=== PATIENT | male | born 1955 | race Caucasian/White ===

== ENCOUNTER 2019-03-28 12:42 | Emergency (ER) | payer BC ==
[2019-03-28 12:56] VITALS: BP 149/93
--- NOTE | 2019-03-28 13:50 | ED Physician Documentation ---
PD HPI SKIN - Stated complaint Stated Complaint: RASH HANDS/TORSO - Chief complaint Chief Complaint: Wound - History obtained from History obtained from: Patient - History of Present Illness Timing - onset: How many weeks ago (1) Timing - duration: Weeks (1) Timing - details: Gradual onset Pain level max: 0 Pain level now: 0 Location: Other (L chest, B hands) Quality / character: Itchy Improved by: Other (hasn't taken anything) Worsened by (comment): COMMENT (nothing) Associated symptoms: No: Fever, Myalgias, Joint pain, Headache, Facial swelling, Dyspnea, Abd pain, N/V/D, Urinary sx, Other Contributing factors: Unknown. No: Exposed to medication, Exposed to food, Exposed to soap / lotion, Exposed to Poison ale/oak, Insect bite /sting, Recent illness Similar symptoms before: Has not had sx before Recently seen: Not recently seen - Additional information Additional information: Patient states that he started with a rash on his hands, they were small vesicles that have now erupted and he has peeling to the bilateral hands. He has also noticed a rash to the left chest wall over the same time. Describes both is itchy. Has not taken anything for this. No new soaps, detergents, medications. No recent travel. Does not work regularly with chemicals. Review of Systems Constitutional: denies: Fever, Chills Respiratory: denies: Cough GI: denies: Vomiting, Diarrhea PD PAST MEDICAL HISTORY - Past Medical History Cardiovascular: None Respiratory: None Neuro: None Endocrine/Autoimmune: Type 2 diabetes GI: None : None HEENT: None Psych: None Musculoskeletal: None Derm: None - Past Surgical History Past Surgical History: Yes General: Gastric surgery, Other Ortho: Other - Present Medications Home Medications: Ambulatory Orders Medication Instructions Recorded Confirmed Cephalexin [Keflex] 500 mg PO TID #21 capsule 02/22/18 Metronidazole [Flagyl] 500 mg PO BID #14 tablet 02/22/18 Naproxen 375 mg PO BID #20 tablet 02/22/18 Ondansetron Odt [Zofran] 4 mg TL Q6H PRN #10 tablet 02/22/18 Oxycodone HCl/Acetaminophen 1 - 2 each PO Q6H PRN #25 tablet 02/22/18 [Percocet 5-325 mg Tablet] Tamsulosin [Flomax] 0.4 mg PO DAILY #5 capsule 02/22/18 predniSONE [Deltasone] 10 mg PO [id number] #42 tab 03/28/19 - Allergies Allergies/Adverse Reactions: Allergies Allergy/AdvReac Type Severity Reaction Status Date / Time No Known Drug Allergies Allergy Verified 03/28/19 12:56 - Social History Does the pt smoke?: Yes Smoking Status: Current every day smoker Does the pt drink ETOH?: No Does the pt have substance abuse?: No - Immunizations Immunizations are current?: Yes - POLST Patient has POLST: No PD ED PE NORMAL - Vitals Vital signs reviewed: Yes - General General: Alert and oriented X 3, No acute distress, Well developed/nourished - HEENT HEENT: Moist mucous membranes - Neck Neck: Supple, no meningeal sign - Cardiac Cardiac: RRR, Strong equal pulses - Respiratory Respiratory: No respiratory distress, Clear bilaterally - Abdomen Abdomen: Soft, Non tender, Non distended - Derm Derm: Warm and dry, Other (Peeling skin diffusely to the bilateral hands, also to the palms. Also has erythematous scaling to the left anterior chest wall and down the left ribs. No vesicles or pustules.) - Neuro Neuro: Alert and oriented X 3 - Psych Psych: Normal mood, Normal affect Results - Vitals Vitals: Vital Signs - 24 hr 03/28/19 12:54 Temperature 35.9 C L Heart Rate 69 Respiratory 16 Rate Blood Pressure 149/93 H O2 Saturation 96 Oxygen O2 Source Room air PD MEDICAL DECISION MAKING - ED course Complexity details: considered differential, d/w patient ED course: 64-year-old male with what appears to be dyshidrotic eczema on his hands. Will place on lotions and steroids for home. Also appears to have a dermatitis to the left chest wall. Unclear etiology. Could potentially be fungal, but seems to be a large area over a short period of time for a fungal infection, therefore we will see how he does prednisone as well. We will have him follow-up with his doctor next week for repeat evaluation. Patient counseled regarding signs and symptoms for which I believe and urgent re-evaluation would be necessary. Patient with good understanding of and agreement to plan and is comfortable going home at this time This document was made in part using voice recognition software. While efforts are made to proofread this document, sound alike and grammatical errors may occur. Departure - Departure Disposition: 01 Home, Self Care Clinical Impression: Dyshidrotic eczema, Dermatitis Condition: Good Instructions: ED Dermatitis Non Specific Rash Follow-Up: your,doctor in 1 week [Other] Prescriptions: predniSONE [Deltasone] 10 mg PO [id number] #42 tab Comments: Use the steroids as prescribed. Return if you worsen. Continue to use lotion at home as well. Follow-up with a recheck by your doctor next week.
== END 2019-03-28 13:55 | disposition home or self-care (01) ==
LOC: ED 12:42
DX: L30.1 Dyshidrosis [pompholyx] (principal); L30.9 Dermatitis, unspecified; E11.9 Type 2 diabetes mellitus without complications; F17.200 Nicotine dependence, unspecified, uncomplicated
CPT/HCPCS: 99282; 99284

== ENCOUNTER 2019-08-10 09:04 | Outpatient (CLI) | payer BC | END 2019-08-10 09:05 | disposition home or self-care (01) | LOC: LAB 09:04 | DX: Z11.59 Encounter for screening for other viral diseases (principal) | CPT/HCPCS: 81599 ==

== ENCOUNTER 2023-03-26 19:40 | Outpatient (CLI) | payer BC | END 2023-03-26 23:59 | disposition EMS.NT | LOC: EMS 19:40 | DX: F10.129 Alcohol abuse with intoxication, unspecified (principal) ==